=== PATIENT | female | born 1945 | race Caucasian/White ===

== ENCOUNTER 2016-07-31 15:48 | Inpatient (IN) | payer MEDICARE ==
[~2016-07-31] VITALS: Ht 170.2 cm; Wt 70.8 kg
[2016-07-31] MEDS: BLOOD SUGAR DIAGNOSTIC 1 EACH STRIP IN SCH (07:30)
[~2016-07-31 15:48] MED LIST: ATOR10TA PO; DONE5TAB34 PO; GLIP10TA11 PO; KETO5DRO83 RIGHTEYE; LISI2.5T2 PO; METF500T4 PO; PRED5DRO7 RIGHTEYE; SITA100T PO; WARF10TA22 PO
[2016-07-31 16:09] LABS: BASOPHILS # (AUTO) 0.1 /CMM (0.0-0.2); BASOPHILS % (AUTO) 0.9 % (0.0-2.0); DIFF TOTAL % 100 %; EOSINOPHILS # (AUTO) 0.5 /CMM (0.0-0.7); EOSINOPHILS % (AUTO) 7.1 % (0.0-6.0); HEMATOCRIT 38 % (33-45); HEMOGLOBIN 12.9 g/dL (11.5-14.8); LYMPHOCYTES # (AUTO) 1.3 /CMM (0.8-4.8); LYMPHOCYTES % (AUTO) 17.6 % (20.0-44.0); MEAN CORPUSCULAR HEMOGLOBIN 30 PG (26.0-33.0); MEAN CORPUSCULAR HGB CONC 34 g/dl (31.0-36.0); MEAN CORPUSCULAR VOLUME 90 fL (82-100); MONOCYTES # (AUTO) 0.6 /CMM (0.1-1.30); MONOCYTES % (AUTO) 7.6 % (2.0-12.0); NEUTROPHILS # (AUTO) 4.8 /CMM (1.8-8.9); NEUTROPHILS % (AUTO) 66.8 % (43.0-81.0); PLATELET COUNT (AUTO) 215 /CMM (150-450); WHITE BLOOD COUNT (AUTO) 7.3 K/uL (4.3-11.0)
[2016-07-31 16:14] LABS: ANION GAP 17 (5-14); CALCIUM, SERUM 9.2 mg/dL (8.5-10.1); CARBON DIOXIDE 25 mmol/L (21-32); CHLORIDE 107 mmol/L (98-107); CREATININE 1.1 mg/dL (0.6-1.3); GLUCOSE 88 mg/dL (74-106); POTASSIUM 4.5 mmol/L (3.5-5.1); SODIUM SERUM 144 mmol/L (136-145); UREA NITROGEN, BLOOD 26 mg/dL (7-18)
[2016-07-31 16:20] LABS: ACETAMINOPHEN 0 ug/ml (10-30); ALANINE AMINOTRANSFERASE 18 U/L (12-78); ALBUMIN 3.6 g/dL (3.4-5.0); ASPARTATE AMINOTRANSFERASE 14 U/L (15-37); BILIRUBIN,DIRECT 0.1 mg/dL (0.0-0.2); BILIRUBIN,TOTAL 0.3 mg/dL (0.2-1.0); INDIRECT BILIRUBIN 0.2 mg/dL (0.0-1.1); SALICYLATE 1.4 mg/dL (2.8-20.0); TOTAL PROTEIN, SERUM 6.9 g/dL (6.4-8.2)
[2016-07-31 17:01] LABS: KETONES,URINE NEGATIVE (NEGATIVE); LEUKOCYTE ESTERASE ,URINE 2+ (NEGATIVE); PH,URINE 5.5 (5.0-8.0)
[2016-07-31 17:04] LABS: ADD UA MICROSCOPIC YES
[2016-07-31 17:16] LABS: ADD URINE CULTURE YES
[2016-07-31] MEDS ORDERED: CEPHALEXIN MONOHYDRATE 500 MG CAPSULE PO ONE ×2 (17:26→17:30)
[2016-07-31 17:32] LABS: CANNABINOID, URINE NEGATIVE (NEGATIVE); PHENCYCLIDINE SCREEN,URINE NEGATIVE (NEGATIVE)
[2016-07-31] MEDS ORDERED: DEXTROSE 50%-WATER 50 ML DISP.SYRIN IV PRN (19:00)
[2016-07-31] MEDS ORDERED: ACETAMINOPHEN 325 MG TABLET PO PRN (19:00)
[2016-07-31] MEDS ORDERED: MAGNESIUM HYDROXIDE 30 ML UDC PO PRN (19:00)
[2016-07-31] MEDS ORDERED: LORAZEPAM 0.5 MG TABLET PO PRN (19:00)
[2016-07-31] MEDS ORDERED: MAG HYDROX/AL HYDROX/SIMETH 30 ML UDC PO PRN (19:00)
[2016-07-31 20:00] VITALS: BP 132/67
[2016-07-31] MEDS: BLOOD SUGAR DIAGNOSTIC 1 EACH STRIP VI SCH (22:00)
[2016-08-01] MEDS: TEMAZEPAM 7.5 MG CAPSULE PO PRN ×2 (00:42→21:23)
[2016-08-01] MEDS ORDERED: OMEP20TA20 PO (06:51)
[2016-08-01] MEDS ORDERED: ZOLP10TA6 PO (06:51)
[2016-08-01] MEDS ORDERED: OLAN5TAB3 PO (06:51)
[2016-08-01] MEDS ORDERED: METF10002 PO (06:51)
[2016-08-01] MEDS ORDERED: QUET25TA PO (06:51)
[2016-08-01 07:25] LABS: BASOPHILS % (AUTO) 0.6 % (0.0-2.0); DIFF TOTAL % 100 %; EOSINOPHILS # (AUTO) 0.5 /CMM (0.0-0.7); HEMATOCRIT 37 % (33-45); HEMOGLOBIN 12.1 g/dL (11.5-14.8); MEAN CORPUSCULAR HEMOGLOBIN 30 PG (26.0-33.0); MEAN CORPUSCULAR HGB CONC 33 g/dl (31.0-36.0); MEAN CORPUSCULAR VOLUME 91 fL (82-100); MONOCYTES # (AUTO) 0.7 /CMM (0.1-1.30); MONOCYTES % (AUTO) 9.4 % (2.0-12.0); NEUTROPHILS # (AUTO) 4.4 /CMM (1.8-8.9); PLATELET COUNT (AUTO) 225 /CMM (150-450); RED BLOOD CELL COUNT(AUTO) 4.07 MIL/uL (4.0-5.2); WHITE BLOOD COUNT (AUTO) 7.6 K/uL (4.3-11.0)
[2016-08-01 07:30] LABS: INR 2.1 (0.87-1.13); PROTHROMBIN TIME 22.9 SECS (9.5-12.7)
[2016-08-01] MEDS: BLOOD SUGAR DIAGNOSTIC 1 EACH STRIP VI SCH ×4 (07:30→22:00)
[2016-08-01] MEDS: BLOOD SUGAR DIAGNOSTIC 1 EACH STRIP IN SCH ×4 (07:30→21:31)
[2016-08-01 07:40] LABS: ALBUMIN 3.3 g/dL (3.4-5.0); BILIRUBIN,TOTAL 0.5 mg/dL (0.2-1.0); CALCIUM, SERUM 8.6 mg/dL (8.5-10.1); TOTAL PROTEIN, SERUM 6.3 g/dL (6.4-8.2)
[2016-08-01 08:26] VITALS: BP 140/68
[2016-08-01] MEDS: LISINOPRIL (5MG) 5 MG TABLET PO SCH (08:54)
[2016-08-01] MEDS: ATORVASTATIN 10 MG TABLET PO SCH (08:55)
[2016-08-01] MEDS: DONEPEZIL 5 MG TABLET PO SCH (08:55)
[2016-08-01] MEDS ORDERED: KETOROLAC TROMETHAMINE RIGHTEYE SCH (09:00)
[2016-08-01] MEDS ORDERED: prednisoLONE ACET 1% OPHT DROP 5 ML BOTTLE RIGHTEYE SCH (09:00)
[2016-08-01] MEDS: INSULIN REGULAR, HUMAN 100 UNIT/ML 3 ML VIAL SQ PRN ×2 (13:02→18:06)
[2016-08-01 16:03] VITALS: BP 129/70
[2016-08-01] MEDS: DIVALPROEX SODIUM 125 MG TABLET.DR PO SCH ×2 (16:47→21:23)
[2016-08-01] MEDS: QUETIAPINE FUMARATE 25 MG TABLET PO SCH (16:48)
[2016-08-01] MEDS: WARFARIN SODIUM 5 MG TABLET PO SCH (17:03)
[2016-08-01 19:49] VITALS: BP 131/71
[2016-08-01] MEDS: *INSULIN REGULAR(HUMULIN R)HUM 100 UNIT/ML VIAL SQ PRN (21:32)
[2016-08-02 07:12] LABS: INR 1.57 (0.87-1.13)
[2016-08-02] MEDS: BLOOD SUGAR DIAGNOSTIC 1 EACH STRIP VI SCH ×4 (07:58→22:38)
[2016-08-02 08:00] VITALS: BP 134/63
[2016-08-02] MEDS: INSULIN REGULAR, HUMAN 100 UNIT/ML 3 ML VIAL SQ PRN ×2 (08:09→17:17)
[2016-08-02] MEDS: ATORVASTATIN 10 MG TABLET PO SCH (08:52)
[2016-08-02] MEDS: DONEPEZIL 5 MG TABLET PO SCH (08:52)
[2016-08-02] MEDS: DIVALPROEX SODIUM 125 MG TABLET.DR PO SCH ×2 (08:52→21:06)
[2016-08-02] MEDS: QUETIAPINE FUMARATE 25 MG TABLET PO SCH ×2 (08:53→17:56)
[2016-08-02] MEDS: LISINOPRIL (5MG) 5 MG TABLET PO SCH (08:53)
[2016-08-02 16:00] VITALS: BP 100/59
[2016-08-02] MEDS: WARFARIN SODIUM 5 MG TABLET PO SCH (17:56)
[2016-08-02 19:50] VITALS: BP 107/64
[2016-08-02] MEDS: TEMAZEPAM 7.5 MG CAPSULE PO PRN (21:06)
[2016-08-03 07:47] LABS: INR 1.68 (0.87-1.13); PROTHROMBIN TIME 18.2 SECS (9.5-12.7)
[2016-08-03 08:00] VITALS: BP 141/88
[2016-08-03] MEDS: ATORVASTATIN 10 MG TABLET PO SCH (08:32)
[2016-08-03] MEDS: DIVALPROEX SODIUM 125 MG TABLET.DR PO SCH ×2 (08:32→21:32)
[2016-08-03] MEDS: QUETIAPINE FUMARATE 25 MG TABLET PO SCH ×3 (08:32→21:32)
[2016-08-03] MEDS: DONEPEZIL 5 MG TABLET PO SCH (08:33)
[2016-08-03] MEDS: LISINOPRIL (5MG) 5 MG TABLET PO SCH (08:33)
[2016-08-03] MEDS: BLOOD SUGAR DIAGNOSTIC 1 EACH STRIP VI SCH ×4 (08:33→21:32)
[2016-08-03] MEDS: INSULIN REGULAR, HUMAN 100 UNIT/ML 3 ML VIAL SQ PRN ×3 (08:42→17:21)
[2016-08-03] MEDS ORDERED: Z GUARD REMEDY 2 OZ OINT TP PRN (11:30)
[2016-08-03] MEDS: Z GUARD REMEDY 2 OZ OINT TP SCH ×2 (11:53→17:20)
[2016-08-03] MEDS: SERTRALINE HCL 25 MG TABLET PO SCH (13:44)
[2016-08-03 16:20] VITALS: BP 113/74
[2016-08-03] MEDS: METFORMIN 500 MG TABLET PO SCH (16:29)
[2016-08-03] MEDS: WARFARIN SODIUM 2 MG TABLET PO SCH (16:31)
[2016-08-03 20:10] VITALS: BP 130/70
[2016-08-03] MEDS: *INSULIN REGULAR(HUMULIN R)HUM 100 UNIT/ML VIAL SQ PRN (21:39)
[2016-08-04] MEDS: TEMAZEPAM 7.5 MG CAPSULE PO PRN (00:48)
[2016-08-04] MEDS: Z GUARD REMEDY 2 OZ OINT TP SCH ×2 (06:34→17:11)
[2016-08-04 07:42] LABS: CHOLESTEROL 148 mg/dL (<200); HDL CHOLESTEROL 60 mg/dL (40-60); LDL 75 mg/dL (0-99); TRIGLYCERIDES 50 mg/dL (30-150)
[2016-08-04 08:00] VITALS: BP 125/74
[2016-08-04] MEDS: QUETIAPINE FUMARATE 25 MG TABLET PO SCH ×3 (09:02→21:32)
[2016-08-04] MEDS: ATORVASTATIN 10 MG TABLET PO SCH (09:02)
[2016-08-04] MEDS: DIVALPROEX SODIUM 125 MG TABLET.DR PO SCH ×2 (09:02→21:32)
[2016-08-04] MEDS: METFORMIN 500 MG TABLET PO SCH ×2 (09:02→16:34)
[2016-08-04] MEDS: DONEPEZIL 5 MG TABLET PO SCH (09:02)
[2016-08-04] MEDS: SERTRALINE HCL 25 MG TABLET PO SCH (09:02)
[2016-08-04] MEDS: LISINOPRIL (5MG) 5 MG TABLET PO SCH (09:03)
[2016-08-04] MEDS: BLOOD SUGAR DIAGNOSTIC 1 EACH STRIP VI SCH ×4 (09:11→21:36)
[2016-08-04] MEDS: INSULIN REGULAR, HUMAN 100 UNIT/ML 3 ML VIAL SQ PRN ×3 (09:13→17:12)
[2016-08-04 15:17] LABS: INR 2.01 (0.87-1.13); PROTHROMBIN TIME 21.9 SECS (9.5-12.7)
[2016-08-04 16:00] VITALS: BP 126/68
[2016-08-04] MEDS: WARFARIN SODIUM 2 MG TABLET PO SCH (16:34)
[2016-08-04 19:45] VITALS: BP 127/67
[2016-08-04] MEDS: *INSULIN REGULAR(HUMULIN R)HUM 100 UNIT/ML VIAL SQ PRN (22:00)
[2016-08-05] MEDS: Z GUARD REMEDY 2 OZ OINT TP SCH ×2 (06:00→17:00)
[2016-08-05] MEDS: BLOOD SUGAR DIAGNOSTIC 1 EACH STRIP VI SCH ×4 (07:30→22:07)
[2016-08-05 08:00] VITALS: BP 126/78
[2016-08-05] MEDS: ATORVASTATIN 10 MG TABLET PO SCH (08:22)
[2016-08-05] MEDS: QUETIAPINE FUMARATE 25 MG TABLET PO SCH ×3 (08:22→21:12)
[2016-08-05] MEDS: DIVALPROEX SODIUM 125 MG TABLET.DR PO SCH ×2 (08:22→21:12)
[2016-08-05] MEDS: DONEPEZIL 5 MG TABLET PO SCH (08:22)
[2016-08-05] MEDS: LISINOPRIL (5MG) 5 MG TABLET PO SCH (08:22)
[2016-08-05] MEDS: METFORMIN 500 MG TABLET PO SCH ×2 (08:22→16:26)
[2016-08-05] MEDS: SERTRALINE HCL 25 MG TABLET PO SCH (08:23)
[2016-08-05 10:31] LABS: INR 2.45 (0.87-1.13); PROTHROMBIN TIME 26.7 SECS (9.5-12.7)
[2016-08-05] MEDS: INSULIN REGULAR, HUMAN 100 UNIT/ML 3 ML VIAL SQ PRN ×2 (12:25→17:10)
[2016-08-05 16:00] VITALS: BP 124/88
[2016-08-05] MEDS: WARFARIN SODIUM 2 MG TABLET PO SCH (16:59)
[2016-08-05 19:59] VITALS: BP 116/59
[2016-08-05] MEDS: *INSULIN REGULAR(HUMULIN R)HUM 100 UNIT/ML VIAL SQ PRN (22:14)
[2016-08-06] MEDS: Z GUARD REMEDY 2 OZ OINT TP SCH ×2 (06:16→17:56)
[2016-08-06] MEDS: BLOOD SUGAR DIAGNOSTIC 1 EACH STRIP VI SCH ×4 (06:54→22:12)
[2016-08-06 08:00] VITALS: BP 135/72
[2016-08-06 09:20] LABS: INR 2.82 (0.87-1.13); PROTHROMBIN TIME 30.8 SECS (9.5-12.7)
[2016-08-06] MEDS: ATORVASTATIN 10 MG TABLET PO SCH (10:08)
[2016-08-06] MEDS: DONEPEZIL 5 MG TABLET PO SCH (10:08)
[2016-08-06] MEDS: SERTRALINE HCL 25 MG TABLET PO SCH (10:09)
[2016-08-06] MEDS: DIVALPROEX SODIUM 125 MG TABLET.DR PO SCH ×2 (10:09→21:52)
[2016-08-06] MEDS: METFORMIN 500 MG TABLET PO SCH ×2 (10:09→17:42)
[2016-08-06] MEDS: LISINOPRIL (5MG) 5 MG TABLET PO SCH (10:10)
[2016-08-06] MEDS: QUETIAPINE FUMARATE 25 MG TABLET PO SCH ×3 (10:10→22:13)
[2016-08-06 16:00] VITALS: BP 108/60
[2016-08-06] MEDS: WARFARIN SODIUM 2 MG TABLET PO SCH (17:44)
[2016-08-06] MEDS: INSULIN REGULAR, HUMAN 100 UNIT/ML 3 ML VIAL SQ PRN (17:45)
[2016-08-06 19:50] VITALS: BP 112/52
[2016-08-06] MEDS: TEMAZEPAM 7.5 MG CAPSULE PO PRN (22:13)
[2016-08-06] MEDS: *INSULIN REGULAR(HUMULIN R)HUM 100 UNIT/ML VIAL SQ PRN (22:13)
[2016-08-07 06:52] LABS: BASOPHILS # (AUTO) 0.1 /CMM (0.0-0.2); BASOPHILS % (AUTO) 0.7 % (0.0-2.0); DIFF TOTAL % 100 %; EOSINOPHILS # (AUTO) 0.5 /CMM (0.0-0.7); EOSINOPHILS % (AUTO) 7.4 % (0.0-6.0); HEMATOCRIT 39 % (33-45); HEMOGLOBIN 12.8 g/dL (11.5-14.8); LYMPHOCYTES # (AUTO) 1.8 /CMM (0.8-4.8); LYMPHOCYTES % (AUTO) 25.6 % (20.0-44.0); MEAN CORPUSCULAR HEMOGLOBIN 30 PG (26.0-33.0); MEAN CORPUSCULAR HGB CONC 33 g/dl (31.0-36.0); MEAN CORPUSCULAR VOLUME 90 fL (82-100); MONOCYTES # (AUTO) 0.7 /CMM (0.1-1.30); MONOCYTES % (AUTO) 9.5 % (2.0-12.0); NEUTROPHILS % (AUTO) 56.8 % (43.0-81.0); PLATELET COUNT (AUTO) 190 /CMM (150-450); RED BLOOD CELL COUNT(AUTO) 4.28 MIL/uL (4.0-5.2)
[2016-08-07 06:56] LABS: INR 2.99 (0.87-1.13); PROTHROMBIN TIME 32.6 SECS (9.5-12.7)
[2016-08-07] MEDS: Z GUARD REMEDY 2 OZ OINT TP SCH ×2 (06:57→17:38)
[2016-08-07 07:07] LABS: CALCIUM, SERUM 9.1 mg/dL (8.5-10.1); CREATININE 1.1 mg/dL (0.6-1.3); PHOSPHORUS 4.1 mg/dL (2.5-4.9); POTASSIUM 4.7 mmol/L (3.5-5.1)
[2016-08-07 08:00] VITALS: BP 117/62
[2016-08-07] MEDS: SERTRALINE HCL 25 MG TABLET PO SCH (09:07)
[2016-08-07] MEDS: BLOOD SUGAR DIAGNOSTIC 1 EACH STRIP VI SCH ×4 (09:07→21:16)
[2016-08-07] MEDS: QUETIAPINE FUMARATE 25 MG TABLET PO SCH ×3 (09:07→21:47)
[2016-08-07] MEDS: METFORMIN 500 MG TABLET PO SCH ×2 (09:07→16:43)
[2016-08-07] MEDS: DIVALPROEX SODIUM 125 MG TABLET.DR PO SCH ×2 (09:07→21:47)
[2016-08-07] MEDS: ATORVASTATIN 10 MG TABLET PO SCH (09:07)
[2016-08-07] MEDS: DONEPEZIL 5 MG TABLET PO SCH (09:07)
[2016-08-07] MEDS: LISINOPRIL (5MG) 5 MG TABLET PO SCH (09:08)
[2016-08-07 16:00] VITALS: BP 106/65
[2016-08-07] MEDS: *INSULIN REGULAR(HUMULIN R)HUM 100 UNIT/ML VIAL SQ PRN ×2 (16:41→21:43)
[2016-08-07] MEDS: WARFARIN SODIUM 2 MG TABLET PO SCH (16:42)
[2016-08-07] MEDS: MAGNESIUM OXIDE 400 MG TABLET PO SCH (16:43)
[2016-08-07 20:00] VITALS: BP 104/60
[2016-08-08] MEDS: Z GUARD REMEDY 2 OZ OINT TP SCH ×2 (05:26→17:39)
[2016-08-08 07:30] LABS: INR 3.12 (0.87-1.13); PROTHROMBIN TIME 34.1 SECS (9.5-12.7)
[2016-08-08 08:00] VITALS: BP 151/66
[2016-08-08] MEDS: LISINOPRIL (5MG) 5 MG TABLET PO SCH (08:32)
[2016-08-08] MEDS: BLOOD SUGAR DIAGNOSTIC 1 EACH STRIP VI SCH ×4 (08:32→22:00)
[2016-08-08] MEDS: QUETIAPINE FUMARATE 25 MG TABLET PO SCH ×3 (08:32→21:52)
[2016-08-08] MEDS: DONEPEZIL 5 MG TABLET PO SCH (08:33)
[2016-08-08] MEDS: DIVALPROEX SODIUM 125 MG TABLET.DR PO SCH ×2 (08:33→21:52)
[2016-08-08] MEDS: MAGNESIUM OXIDE 400 MG TABLET PO SCH ×2 (08:33→17:39)
[2016-08-08] MEDS: METFORMIN 500 MG TABLET PO SCH ×2 (08:33→17:39)
[2016-08-08] MEDS: SERTRALINE HCL 25 MG TABLET PO SCH (08:33)
[2016-08-08] MEDS: ATORVASTATIN 10 MG TABLET PO SCH (08:33)
[2016-08-08] MEDS: INSULIN REGULAR, HUMAN 100 UNIT/ML 3 ML VIAL SQ PRN ×2 (12:15→17:38)
[2016-08-08 16:14] VITALS: BP 97/55
[2016-08-08] MEDS: WARFARIN SODIUM 2 MG TABLET PO SCH (17:37)
[2016-08-08 20:00] VITALS: BP 122/71
[2016-08-08] MEDS: TEMAZEPAM 7.5 MG CAPSULE PO PRN (21:52)
[2016-08-08] MEDS: *INSULIN REGULAR(HUMULIN R)HUM 100 UNIT/ML VIAL SQ PRN (23:20)
[2016-08-09] MEDS: BLOOD SUGAR DIAGNOSTIC 1 EACH STRIP VI SCH ×4 (07:48→21:33)
[2016-08-09] MEDS: Z GUARD REMEDY 2 OZ OINT TP SCH ×2 (07:49→18:00)
[2016-08-09 08:02] VITALS: BP 130/69
[2016-08-09 08:39] LABS: INR 2.28 (0.87-1.13); PROTHROMBIN TIME 24.8 SECS (9.5-12.7)
[2016-08-09] MEDS: DIVALPROEX SODIUM 125 MG TABLET.DR PO SCH ×2 (09:16→21:28)
[2016-08-09] MEDS: SERTRALINE HCL 25 MG TABLET PO SCH (09:17)
[2016-08-09] MEDS: QUETIAPINE FUMARATE 25 MG TABLET PO SCH ×3 (09:17→21:28)
[2016-08-09] MEDS: METFORMIN 500 MG TABLET PO SCH ×2 (09:17→17:59)
[2016-08-09] MEDS: MAGNESIUM OXIDE 400 MG TABLET PO SCH ×2 (09:17→17:59)
[2016-08-09] MEDS: ATORVASTATIN 10 MG TABLET PO SCH (09:17)
[2016-08-09] MEDS: DONEPEZIL 5 MG TABLET PO SCH (09:17)
[2016-08-09] MEDS: LISINOPRIL (5MG) 5 MG TABLET PO SCH (09:18)
[2016-08-09] MEDS: INSULIN REGULAR, HUMAN 100 UNIT/ML 3 ML VIAL SQ PRN ×3 (09:24→18:26)
[2016-08-09 16:13] VITALS: BP 126/66
[2016-08-09] MEDS: WARFARIN SODIUM 2 MG TABLET PO SCH (18:02)
[2016-08-09 19:49] VITALS: BP 110/61
[2016-08-09] MEDS: *INSULIN REGULAR(HUMULIN R)HUM 100 UNIT/ML VIAL SQ PRN (22:07)
[2016-08-09] MEDS: TEMAZEPAM 7.5 MG CAPSULE PO PRN (23:45)
[2016-08-10] MEDS: Z GUARD REMEDY 2 OZ OINT TP SCH (06:05)
[2016-08-10] MEDS: BLOOD SUGAR DIAGNOSTIC 1 EACH STRIP VI SCH ×3 (07:33→16:51)
[2016-08-10 08:00] VITALS: BP 117/69
[2016-08-10] MEDS: DIVALPROEX SODIUM 125 MG TABLET.DR PO SCH (08:40)
[2016-08-10] MEDS: MAGNESIUM OXIDE 400 MG TABLET PO SCH ×2 (08:41→17:05)
[2016-08-10] MEDS: QUETIAPINE FUMARATE 25 MG TABLET PO SCH ×2 (08:41→17:06)
[2016-08-10] MEDS: LISINOPRIL (5MG) 5 MG TABLET PO SCH (08:41)
[2016-08-10] MEDS: DONEPEZIL 5 MG TABLET PO SCH (08:42)
[2016-08-10] MEDS: METFORMIN 500 MG TABLET PO SCH ×2 (08:42→17:05)
[2016-08-10] MEDS: SERTRALINE HCL 25 MG TABLET PO SCH (08:42)
[2016-08-10] MEDS: ATORVASTATIN 10 MG TABLET PO SCH (08:42)
[2016-08-10] MEDS: INSULIN REGULAR, HUMAN 100 UNIT/ML 3 ML VIAL SQ PRN (12:13)
[2016-08-10 16:09] VITALS: BP 121/65
[2016-08-10] MEDS: WARFARIN SODIUM 2 MG TABLET PO SCH (17:09)
== END 2016-08-10 16:15 | DRG 885 ==
LOC: ER 15:52 → GPS 18:08
PROVIDERS: ADMIT Psychiatry & Neurology Psychosomatic Medicine; ATTEND Student in an Organized Health Care Education/Training Program
DX: F39 Unspecified mood [affective] disorder (principal); F02.80 Dementia in other diseases classified elsewhere, unspecified severity, without behavioral disturbance, psychotic disturbance, mood disturbance, and anxiety; N17.0 Acute kidney failure with tubular necrosis; F32.2 Major depressive disorder, single episode, severe without psychotic features; G89.29 Other chronic pain; I48.91 Unspecified atrial fibrillation; I10 Essential (primary) hypertension; E11.9 Type 2 diabetes mellitus without complications; F29 Unspecified psychosis not due to a substance or known physiological condition; E78.5 Hyperlipidemia, unspecified; Z79.01 Long term (current) use of anticoagulants; G31.83 Neurocognitive disorder with Lewy bodies
CPT/HCPCS: 36415; 71010-TC; 80048-TC; 80053-TC; 80061-TC; 80076-TC; 80305; 81000-TC; 82962-TC; 83735-TC; 84100-TC; 85025-TC; 85610-TC; 87081-TC; 87086-TC; 97001-TC; 97116-TC; 97530-TC; A4606; G6038-TC; G6039-TC; G6040-TC; J1815; Z7610

== ENCOUNTER 2016-11-26 15:15 | Inpatient (IN) | payer MEDICARE ==
[~2016-11-26] VITALS: Ht 167.6 cm; Wt 83.0 kg
[~2016-11-26 15:15] MED LIST changes: -DONE5TAB34 PO; +METF10002 PO; +OMEP20TA20 PO; +ZOLP10TA6 PO
--- NOTE | 2016-11-26 15:15 | NUR ---
BIB CAREGIVER, REPORTS AGGRESSIVE WITH OTHER RESIDENTS. NAD NOTED. RR EVEN AND UNLBAORED. VSS. CONTINUE TO MONITOR.
--- NOTE | 2016-11-26 15:31 | NUR ---
CURTAIN CLEANER KATARINA DALTON
[2016-11-26] MEDS ORDERED: QUET25TA PO (15:37)
[2016-11-26] MEDS ORDERED: DIVA500T7 PO (15:37)
[2016-11-26] MEDS ORDERED: DONE5TAB34 PO (15:41)
[2016-11-26 15:42] LABS: BASOPHILS % (AUTO) 0.7 % (0.0-2.0); EOSINOPHILS # (AUTO) 0.3 /CMM (0.0-0.7); EOSINOPHILS % (AUTO) 5.2 % (0.0-6.0); HEMATOCRIT 35 % (33-45); HEMOGLOBIN 11.8 g/dL (11.5-14.8); LYMPHOCYTES # (AUTO) 1.6 /CMM (0.8-4.8); LYMPHOCYTES % (AUTO) 24.3 % (20.0-44.0); MEAN CORPUSCULAR HEMOGLOBIN 31 PG (26.0-33.0); MEAN CORPUSCULAR HGB CONC 34 g/dl (31.0-36.0); MEAN CORPUSCULAR VOLUME 92 fL (82-100); MONOCYTES # (AUTO) 0.8 /CMM (0.1-1.30); MONOCYTES % (AUTO) 12.1 % (2.0-12.0); NEUTROPHILS # (AUTO) 3.9 /CMM (1.8-8.9); NEUTROPHILS % (AUTO) 57.7 % (43.0-81.0); PLATELET COUNT (AUTO) 198 /CMM (150-450); RDW COEFFICIENT OF VARIATION 12.3 (11.5-15.0); RED BLOOD CELL COUNT(AUTO) 3.81 MIL/uL (4.0-5.2); WHITE BLOOD COUNT (AUTO) 6.6 K/uL (4.3-11.0)
[2016-11-26 15:56] LABS: CALCIUM, SERUM 8.5 mg/dL (8.5-10.1); CARBON DIOXIDE 26 mmol/L (21-32); CHLORIDE 108 mmol/L (98-107); CREATININE 0.9 mg/dL (0.6-1.3); GLUCOSE 98 mg/dL (74-106); POTASSIUM 4.6 mmol/L (3.5-5.1); SODIUM SERUM 142 mmol/L (136-145); UREA NITROGEN, BLOOD 30 mg/dL (7-18)
[2016-11-26] MEDS ORDERED: IBUPROFEN 400 MG TABLET PO ONE (16:00)
[2016-11-26 16:01] LABS: ALANINE AMINOTRANSFERASE 12 U/L (12-78); ALBUMIN 3.2 g/dL (3.4-5.0); ALCOHOL, BLOOD < 3 mg/dL (0-0); ALKALINE PHOSPHATASE 88 U/L (46-116); ASPARTATE AMINOTRANSFERASE 13 U/L (15-37); BILIRUBIN,TOTAL 0.3 mg/dL (0.2-1.0); TOTAL PROTEIN, SERUM 6.3 g/dL (6.4-8.2)
[2016-11-26 16:02] LABS: ACETAMINOPHEN 0 ug/ml (10-30)
--- NOTE | 2016-11-26 16:35 | NUR ---
URINE OBTAINED SENT TO LAB
[2016-11-26 16:47] LABS: APPEARANCE,URINE Clear (CLEAR); BLOOD, URINE Negative Ery/uL (NEGATIVE); COLOR,URINE Yellow (YELLOW); KETONES,URINE 15 (NEGATIVE); LEUKOCYTE ESTERASE ,URINE Trace (NEGATIVE); NITRITE, URINE Negative (NEGATIVE); PROTEIN,URINE 30 mg/dl (NEGATIVE); UGLUCOSE Negative (NEGATIVE)
[2016-11-26 16:52] LABS: BILIRUBIN,URINE SMALL (NEGATIVE)
[2016-11-26 17:02] LABS: ADD URINE CULTURE NO; BACTERIA,URINE None seen /HPF (None Seen); RBC,URINE 0-2 /HPF (0-2); SQUAMOUS EPITHELIAL CELL,UR Few /HPF (None Seen)
[2016-11-26] MEDS ORDERED: DIVA125C5 PO (17:03)
[2016-11-26] MEDS ORDERED: SERT25TA PO (17:03)
[2016-11-26 17:07] LABS: CANNABINOID, URINE NEGATIVE (NEGATIVE); PHENCYCLIDINE SCREEN,URINE NEGATIVE (NEGATIVE)
--- NOTE | 2016-11-26 17:57 | NUR ---
report given to luzmaria proctor for vince
[2016-11-26] MEDS ORDERED: LORAZEPAM 0.5 MG TABLET PO PRN (19:00)
[2016-11-26] MEDS ORDERED: ACETAMINOPHEN 325 MG TABLET PO PRN (19:00)
[2016-11-26] MEDS ORDERED: MAG HYDROX/AL HYDROX/SIMETH 30 ML UDC PO PRN (19:00)
[2016-11-26] MEDS ORDERED: MAGNESIUM HYDROXIDE 30 ML UDC PO PRN (19:00)
[2016-11-26 20:00] VITALS: BP 122/80
--- NOTE | 2016-11-26 20:00 | NUR ---
GPS DIGITAL ASSET MANAGER NOTES ADMITTED THIS 71 YEAR OLD FEMALE ON 5150 HOLD FOR GRAVE DISABILITY. PER HOLD PATIENT WAS AGITATED AND AGGRESSIVE.SHE WAS ALSO DELUSIONAL ANS PARANOID.SHE IS NOT SLEEPING AND IS STRIKING AT STAFF. ON FACE TO FACE, PATIENT WAS QUIET AND CALM.AMBULATORY. WITH FLAT AFFECT. VITAL SIGNS CHECKED AND RECORDED. AFEBRILE. ASSESSMENT OF BODY SYSTEMS COMPLETED. REFUSED SKIN ASSESSMENT AT THIS TIME. PATIENTS BELONGINGS CHECKED FOR CONTRABAND ITEMS, NONE FOUND WITH PATIENT. PATIENT ADMITTED UNDER THE CARE OF DR. MOON FOR PSYCHE AND FOR MEDICAL. KEPT PATINT WARM AND COMFORTABLE IN BED
[2016-11-26] MEDS: TEMAZEPAM 7.5 MG CAPSULE PO PRN (21:14)
[2016-11-27 08:00] VITALS: BP 145/82
[2016-11-27 08:27] LABS: ALBUMIN 3.5 g/dL (3.4-5.0); BILIRUBIN,TOTAL 0.4 mg/dL (0.2-1.0); CALCIUM, SERUM 9.1 mg/dL (8.5-10.1); CREATININE 0.9 mg/dL (0.6-1.3); POTASSIUM 4.8 mmol/L (3.5-5.1); TOTAL PROTEIN, SERUM 6.4 g/dL (6.4-8.2)
[2016-11-27] MEDS: METFORMIN 500 MG TABLET PO SCH ×2 (08:43→16:12)
[2016-11-27] MEDS: LISINOPRIL (5MG) 5 MG TABLET PO SCH (08:43)
[2016-11-27] MEDS: ATORVASTATIN 10 MG TABLET PO SCH (08:43)
[2016-11-27] MEDS: NITROFURANTOIN/NITROFURAN MAC 100 MG CAPSULE PO SCH ×2 (08:44→20:15)
[2016-11-27] MEDS: glipiZIDE 10 MG TABLET PO SCH (08:44)
[2016-11-27] MEDS ORDERED: SERTRALINE HCL 25 MG TABLET PO SCH (09:00)
[2016-11-27 09:12] LABS: INR 1.76 (0.87-1.13); PROTHROMBIN TIME 19.5 SECS (9.5-12.7)
--- NOTE | 2016-11-27 11:42 | NUR ---
Initial DC Plan: Pt resides at [facility] located at [address] [place] [address]; [phone] and would like to return upon discharge. SW attempted to contact friend and DPOA Cheryl [phone] but number is a non-working number. Viki ([phone]) in admissions agrees to accept pt back once she is stabilized. Called back Viki to obtain new number for Cheryl but she did not answer. SW will help form a safe and proper discharge. Patient will be given sobriety resources upon discharge.
[2016-11-27] MEDS: DIVALPROEX SODIUM 125 MG CAP.SPRINK PO SCH ×2 (14:02→20:15)
[2016-11-27] MEDS: QUETIAPINE FUMARATE 25 MG TABLET PO SCH (14:55)
--- NOTE | 2016-11-27 15:19 | NUR ---
EDITH JAY CAME AND EXAMINED PT. AND MADE AWARE OF THE PT/ INR AND SAID HE WILL LOOK AT IT.
[2016-11-27 16:00] VITALS: BP 122/68
[2016-11-27] MEDS: WARFARIN SODIUM 5 MG TABLET PO SCH (16:13)
[2016-11-27 20:00] VITALS: BP 133/79
[2016-11-27] MEDS: TEMAZEPAM 7.5 MG CAPSULE PO PRN (22:02)
[2016-11-28 07:32] LABS: INR 1.52 (0.87-1.13); PROTHROMBIN TIME 16.7 SECS (9.5-12.7)
[2016-11-28 07:59] VITALS: BP 129/75
[2016-11-28] MEDS: DIVALPROEX SODIUM 125 MG CAP.SPRINK PO SCH ×2 (09:00→18:07)
[2016-11-28] MEDS: LISINOPRIL (5MG) 5 MG TABLET PO SCH (09:00)
[2016-11-28] MEDS: glipiZIDE 10 MG TABLET PO SCH (09:01)
[2016-11-28] MEDS: NITROFURANTOIN/NITROFURAN MAC 100 MG CAPSULE PO SCH ×2 (09:01→20:33)
[2016-11-28] MEDS: QUETIAPINE FUMARATE 25 MG TABLET PO SCH ×2 (09:01→20:33)
[2016-11-28] MEDS: ATORVASTATIN 10 MG TABLET PO SCH (09:01)
[2016-11-28] MEDS: METFORMIN 500 MG TABLET PO SCH ×2 (09:01→16:34)
[2016-11-28 16:00] VITALS: BP 117/60
[2016-11-28] MEDS: WARFARIN SODIUM 5 MG TABLET PO SCH (16:36)
[2016-11-28 19:56] VITALS: BP 119/72
[2016-11-28] MEDS: TEMAZEPAM 7.5 MG CAPSULE PO PRN (22:07)
[2016-11-29 08:00] VITALS: BP 117/57
[2016-11-29] MEDS: glipiZIDE 10 MG TABLET PO SCH (08:25)
[2016-11-29] MEDS: METFORMIN 500 MG TABLET PO SCH ×2 (08:25→17:29)
[2016-11-29] MEDS: DIVALPROEX SODIUM 125 MG CAP.SPRINK PO SCH ×3 (08:25→17:29)
[2016-11-29] MEDS: QUETIAPINE FUMARATE 25 MG TABLET PO SCH ×3 (08:25→21:31)
[2016-11-29] MEDS: ATORVASTATIN 10 MG TABLET PO SCH (08:26)
[2016-11-29] MEDS: NITROFURANTOIN/NITROFURAN MAC 100 MG CAPSULE PO SCH ×2 (08:26→21:31)
[2016-11-29] MEDS: LISINOPRIL (5MG) 5 MG TABLET PO SCH (08:27)
[2016-11-29 13:33] LABS: INR 1.39 (0.87-1.13); PROTHROMBIN TIME 15.2 SECS (9.5-12.7)
[2016-11-29] MEDS: WARFARIN SODIUM 5 MG TABLET PO SCH (17:30)
--- NOTE | 2016-11-29 19:30 | NUR ---
GPS RN NOTE, RECEIVED PATIENT AWAKE AND IN BED, NO S/S OR COMPLAINTS OF PAIN AT THIS TIME. PATIENT IS DISPLAYING NO S/S OF APPARENT DISTRESS AT THIS TIME. PATIENT BREATHING IS UNLABORED WITH EQUAL RISE AND FALL OF THE CHEST. PATIENT IS ALERT AND ORIENTED X 1-2 ON ROOM AIR WITH A SPO2 98%. PATIENT COMPLIANT WITH MEDICATIONS, DEPRESSED, COOPERATIVE, CALM, CONFUSED AT TIMES, WONDERS, AND NEEDS REORIENTATION. PATIENT DENIES SUICIDE AND HOMICIDAL IDEATIONS AT THIS TIME. PATIENT ASSISTED WITH TURNING AND REPOSITIONING Q2HR AND PRN FOR COMFORT AND CIRCULATION. PATIENT HAS NO NEEDS AT THIS TIME. PATIENT EDUCATED ON THE USE OF THE CALL GARDNER. PATIENT BED SIDE RAILS UP X2 FOR SAFETY, BED IS LOCKED AND LOW WILL CONTINUE TO MONITOR AND MAINTAIN SAFETY.
--- NOTE | 2016-11-29 19:38 | NUR ---
GPS RN NOTE, PATIENT REFUSED TO DO SKIN ASSESSMENT TODAY STATING, " I DON'T LIKE HAVING PICTURES TAKEN OF ME ". OFFERED TO DO SKIN ASSESSMENT THREE TIMES AND STILL PATIENT REFUSED. EDUCATED THE PATIENT ON THE RULES AND REGULATION OF THE HOSPITAL ABOUT SKIN ASSESSMENT. WILL CONTINUE TO MONITOR THIS PATIENT.
[2016-11-29 20:06] VITALS: BP 120/68
[2016-11-30 08:00] VITALS: BP 119/60
[2016-11-30] MEDS: DIVALPROEX SODIUM 125 MG CAP.SPRINK PO SCH ×3 (08:07→16:09)
[2016-11-30] MEDS: QUETIAPINE FUMARATE 25 MG TABLET PO SCH ×3 (08:07→21:31)
[2016-11-30] MEDS: glipiZIDE 10 MG TABLET PO SCH (08:07)
[2016-11-30] MEDS: LISINOPRIL (5MG) 5 MG TABLET PO SCH (08:08)
[2016-11-30] MEDS: ATORVASTATIN 10 MG TABLET PO SCH (08:08)
[2016-11-30] MEDS: METFORMIN 500 MG TABLET PO SCH ×2 (08:08→16:09)
[2016-11-30] MEDS: NITROFURANTOIN/NITROFURAN MAC 100 MG CAPSULE PO SCH ×2 (08:08→21:31)
[2016-11-30 09:38] LABS: INR 1.55 (0.87-1.13); PROTHROMBIN TIME 17.1 SECS (9.5-12.7)
--- NOTE | 2016-11-30 12:17 | NUR ---
JERALD NOVAK ON THE UNIT. DISCUSSED THE CASE: KEEP PT ON 10MG OF COUMADIN. INR TODAY IS 1.55, SHE IS NOT AT THERAPEUTIC LEVEL YET.
[2016-11-30] MEDS: WARFARIN SODIUM 5 MG TABLET PO SCH (16:10)
[2016-11-30 16:18] VITALS: BP 110/60
[2016-11-30 20:00] VITALS: BP 118/66
[2016-12-01 08:17] VITALS: BP 111/73
[2016-12-01] MEDS: ATORVASTATIN 10 MG TABLET PO SCH (08:19)
[2016-12-01] MEDS: DIVALPROEX SODIUM 125 MG CAP.SPRINK PO SCH ×3 (08:20→17:29)
[2016-12-01] MEDS: METFORMIN 500 MG TABLET PO SCH ×2 (08:20→17:28)
[2016-12-01] MEDS: NITROFURANTOIN/NITROFURAN MAC 100 MG CAPSULE PO SCH ×2 (08:20→21:21)
[2016-12-01] MEDS: LISINOPRIL (5MG) 5 MG TABLET PO SCH (08:21)
[2016-12-01] MEDS: glipiZIDE 10 MG TABLET PO SCH (08:21)
[2016-12-01] MEDS: QUETIAPINE FUMARATE 25 MG TABLET PO SCH ×3 (08:26→21:21)
[2016-12-01 09:31] LABS: INR 1.73 (0.87-1.13); PROTHROMBIN TIME 19.2 SECS (9.5-12.7)
[2016-12-01 16:00] VITALS: BP 115/60
[2016-12-01] MEDS: WARFARIN SODIUM 5 MG TABLET PO SCH (17:29)
[2016-12-01 20:01] VITALS: BP 111/62
[2016-12-02] MEDS: QUETIAPINE FUMARATE 25 MG TABLET PO SCH ×3 (07:39→21:12)
[2016-12-02] MEDS: glipiZIDE 10 MG TABLET PO SCH (07:41)
[2016-12-02] MEDS: METFORMIN 500 MG TABLET PO SCH ×2 (07:43→17:51)
[2016-12-02] MEDS: DIVALPROEX SODIUM 125 MG CAP.SPRINK PO SCH ×3 (07:43→17:51)
[2016-12-02] MEDS: ATORVASTATIN 10 MG TABLET PO SCH (07:43)
[2016-12-02] MEDS: NITROFURANTOIN/NITROFURAN MAC 100 MG CAPSULE PO SCH ×2 (07:43→21:12)
[2016-12-02 08:00] VITALS: BP 103/55
[2016-12-02] MEDS: LISINOPRIL (5MG) 5 MG TABLET PO SCH (08:25)
[2016-12-02 10:16] LABS: INR 1.66 (0.87-1.13); PROTHROMBIN TIME 18.4 SECS (9.5-12.7)
[2016-12-02 16:00] VITALS: BP 115/63
[2016-12-02] MEDS: WARFARIN SODIUM 5 MG TABLET PO SCH (17:52)
[2016-12-02 22:26] VITALS: BP 117/58
[2016-12-03 07:57] VITALS: BP 100/74
--- NOTE | 2016-12-03 08:37 | NUR ---
PT. WITH AN ORDER TO D/C HOLD AND D/C TO [facility]. PT. WITHOUT DISTRESS, DENIES SUICIDAL AND HOMICIDAL. TO FOLLOW UP WITH PSYCH AND MEDICAL DOCTORS.
[2016-12-03] MEDS: glipiZIDE 10 MG TABLET PO SCH (08:42)
[2016-12-03] MEDS: METFORMIN 500 MG TABLET PO SCH (08:42)
[2016-12-03] MEDS: ATORVASTATIN 10 MG TABLET PO SCH (08:43)
[2016-12-03] MEDS: NITROFURANTOIN/NITROFURAN MAC 100 MG CAPSULE PO SCH (08:43)
[2016-12-03] MEDS: DIVALPROEX SODIUM 125 MG CAP.SPRINK PO SCH (08:43)
[2016-12-03 08:44] VITALS: BP 110/74
[2016-12-03] MEDS: LISINOPRIL (5MG) 5 MG TABLET PO SCH (08:44)
[2016-12-03] MEDS: QUETIAPINE FUMARATE 25 MG TABLET PO SCH (08:49)
[2016-12-03 10:23] LABS: INR 1.95 (0.87-1.13); PROTHROMBIN TIME 21.8 SECS (9.5-12.7)
--- NOTE | 2016-12-03 11:45 | NUR ---
DISCHARGE ORDER/ PATIENT DISCHARGE AT THIS TIME, GOING [facility]. PATIENT A/O X2/3, REDIRECTABLE. PATIENT AMBULATORY SELF CARE. PT MED COMPLIANT, V/S STABLE, NO C/O PAIN, MEDICALLY STABLE. PATIENT DENIED SI/HI/AVH AT THIS TIME. MED RECONCILIATION, AND DISCHARGE ORDER REVIEWED AND EXPLAINED TO PATIENT, AND RUBBER PROCESS HAND. RUBBER PROCESS HAND VERBALIZED UNDERSTANDING. BELONGING RETURNED BACK TO THE PATIENT. PATIENT UNLOADER OPERATOR FROM [facility] FROM FACILITY PHONE # [phone]. ESCORTED PATIENT TO THE LOBBY FOR SAFETY.
--- NOTE | 2016-12-03 14:19 | NUR ---
Discharge Note: Patient was discharged to [facility] located at [address] [facility] [address]; [phone]. Patient's DPOA Cheryl ([phone]) was informed and agreeable with the discharge plan. Patient was picked up by Viki ([phone]) the hr coordinator from [facility]. Patient was agreeable with the discharge plan. Patient's mood and affect were appropriate upon discharge. Patient denied suicidal and homicidal ideations. metal worker provided patient with a referral to the [facility] [address] [facility] [address] ([phone]). Facilitated info to IDT team who are in agreement with discharge arrangement. The multidisciplinary exitcare form was done, printed, signed, and given to the patient.
== END 2016-12-03 11:45 | disposition home or self-care (01) | DRG 885 ==
LOC: ER 15:19 → GPS 18:02
PROVIDERS: ADMIT Psychiatry & Neurology Psychosomatic Medicine; ATTEND Contractor
DX: F29 Unspecified psychosis not due to a substance or known physiological condition (principal); F06.32 Mood disorder due to known physiological condition with major depressive-like episode; N17.0 Acute kidney failure with tubular necrosis; F02.81 Dementia in other diseases classified elsewhere, unspecified severity, with behavioral disturbance; N39.0 Urinary tract infection, site not specified; E44.1 Mild protein-calorie malnutrition; G31.83 Neurocognitive disorder with Lewy bodies; E11.9 Type 2 diabetes mellitus without complications; Z79.84 Long term (current) use of oral hypoglycemic drugs; I48.91 Unspecified atrial fibrillation; Z79.01 Long term (current) use of anticoagulants; E78.5 Hyperlipidemia, unspecified; Z68.29 Body mass index [BMI] 29.0-29.9, adult; Z79.899 Other long term (current) drug therapy; I10 Essential (primary) hypertension
CPT/HCPCS: 36415; 80048-TC; 80053-TC; 80076-TC; 80305; 81000-TC; 82962-TC; 85025-TC; 85610-TC; 87081-TC; A4606; G0480; G6039-TC; Z7610